=== PATIENT | female | born 1945 | race Caucasian/White ===

== ENCOUNTER 2018-02-27 10:23 | Inpatient (IN) | payer OTHER ==
[~2018-02-27] VITALS: Ht 160 cm; Wt 55.8 kg
[2018-02-27 10:29] VITALS: BP 152/92
[2018-02-27 11:13] LABS: ABSOLUTE NEUTROPHILS 9.3 thou/uL (1.4-8.2); BASOPHILS 0.5 % (0.0-2.0); HEMATOCRIT 41.8 % (37.0-47.0); HEMOGLOBIN 14.5 gm/dL (12.0-15.0); LYMPHOCYTES 8.6 % (24.0-44.0); MCH 32.4 pg (26.0-34.0); MCHC 34.6 g/dL (28.0-37.0); MCV 93.7 fL (80.0-100.0); PLATELET COUNT 233 thou/uL (150-400); POLYS 84.9 % (36.0-66.0); RBC 4.47 mil/uL (4.20-5.00); RDW 12.9 % (10.5-14.5); WBC 10.9 thou/uL (4.0-11.0)
[2018-02-27 11:21] LABS: CALCIUM 9.6 mg/dL (8.5-10.1); CREATININE 0.7 mg/dL (0.6-1.0); POTASSIUM 3.7 mmol/L (3.5-5.1)
[2018-02-27 11:27] LABS: TOTAL BILIRUBIN 0.5 mg/dL (<0.1-1.0); TOTAL PROTEIN 6.9 g/dL (6.4-8.2)
[2018-02-27 11:34] LABS: URINE BILIRUBIN NEGATIVE (Negative); URINE BLOOD TRACE (Negative); URINE CLARITY CLEAR; URINE COLOR YELLOW; URINE GLUCOSE-RANDOM* NEGATIVE (Negative); URINE KETONES NEGATIVE (Negative); URINE LEUKOCYTES-REFLEX NEGATIVE (Negative); URINE NITRITE-REFLEX NEGATIVE (Negative); URINE PROTEIN (DIPSTICK) NEGATIVE (Negative); URINE SPECIFIC GRAVITY 1.015 (1.005-1.035); URINE UROBILINOGEN 0.2 E.U./dl (0.2-1.0)
[2018-02-27 14:27] VITALS: BP 125/83
[2018-02-27 14:36] LABS: TSH 0.691 uIU/mL (0.358-3.740)
[2018-02-27 16:00] VITALS: BP 158/65
[2018-02-27 19:30] VITALS: BP 125/67
[2018-02-28 03:36] VITALS: BP 113/67
[2018-02-28 05:57] LABS: HEMATOCRIT 36.7 % (37.0-47.0); MCH 32.2 pg (26.0-34.0); MCHC 34.2 g/dL (28.0-37.0); MCV 94.3 fL (80.0-100.0); RBC 3.89 mil/uL (4.20-5.00); WBC 10.2 thou/uL (4.0-11.0)
[2018-02-28 05:58] LABS: HEMOGLOBIN 12.5 gm/dL (12.0-15.0)
[2018-02-28 06:11] LABS: CALCIUM 8.7 mg/dL (8.5-10.1); CREATININE 0.8 mg/dL (0.6-1.0); MAGNESIUM 1.8 mg/dL (1.8-2.4); POTASSIUM 3.6 mmol/L (3.5-5.1)
[2018-02-28 08:00] VITALS: BP 119/73
[2018-02-28 16:00] VITALS: BP 137/71
[2018-02-28 19:28] VITALS: BP 128/74
[2018-03-01 04:15] VITALS: BP 127/68
[2018-03-01 05:01] LABS: HEMATOCRIT 35.2 % (37.0-47.0); HEMOGLOBIN 12.4 gm/dL (12.0-15.0); MCH 32.8 pg (26.0-34.0); MCHC 35.2 g/dL (28.0-37.0); MCV 93.4 fL (80.0-100.0); RBC 3.77 mil/uL (4.20-5.00); RDW 12.8 % (10.5-14.5); WBC 9.4 thou/uL (4.0-11.0)
[2018-03-01 05:05] LABS: CALCIUM 8.7 mg/dL (8.5-10.1); CREATININE 0.8 mg/dL (0.6-1.0); MAGNESIUM 1.7 mg/dL (1.8-2.4); POTASSIUM 3.5 mmol/L (3.5-5.1)
[2018-03-01 07:40] VITALS: BP 114/68
[2018-03-01] MEDS ORDERED: ZOFRAN ODT4 MG PO (10:37)
[2018-03-01] MEDS ORDERED: FLAGYL500 MG PO (10:37)
[2018-03-01] MEDS ORDERED: CIPRO500 MG PO (10:37)
[2018-03-01 10:47] VITALS: BP 114/68
== END 2018-03-01 12:30 | disposition home or self-care (01) | DRG 392 ==
LOC: ER 10:23 → 4W 12:42 → EROBS 12:42 → 4W 14:42
PROVIDERS: Emergency Medicine; Internal Medicine; Physician Assistant
DX: K52.9 Noninfective gastroenteritis and colitis, unspecified (principal); K92.2 Gastrointestinal hemorrhage, unspecified; Z90.49 Acquired absence of other specified parts of digestive tract; Z79.899 Other long term (current) drug therapy
CPT/HCPCS: 10045